=== PATIENT | female | born 1995 | race Asian ===

== ENCOUNTER 2019-04-03 00:37 | Emergency (ER) | payer OTHER ==
[2019-04-03 01:37] LABS: BILIRUBIN,URINE NEGATIVE (NEGATIVE); GLUCOSE, URINE (UA) NEGATIVE (NEGATIVE); KETONES,URINE (UA) NEGATIVE (NEGATIVE); LEUKOCYTE ESTERASE, URINE NEGATIVE (NEGATIVE); NITRITE,URINE NEGATIVE (NEGATIVE); OCCULT BLOOD,URINE NEGATIVE (NEGATIVE); PROTEIN,URINE NEGATIVE (NEGATIVE); UROBILINOGEN,URINE 0.2 (NORMAL) E.U./dL (NORMAL)
[2019-04-03 01:39] LABS: CLARITY,URINE CLEAR (CLEAR); HCG UR QUAL NEGATIVE
--- NOTE | 2019-04-03 02:55 | ED Physician Documentation ---
PD HPI ABD PAIN - Stated complaint Stated Complaint: FEVER - Chief complaint Chief Complaint: Abd Pain - History obtained from History obtained from: Patient - History of Present Illness Timing - onset: How many days ago (2) Timing - duration: Days (2) Timing - details: Gradual onset, Still present Quality: Cramping, Aching, Pain Location: RLQ, Suprapubic Radiation: No: Lower back Improved by: No: Eating Worsened by: No: Eating Associated symptoms: Nausea, Vomiting, Vaginal dc (mild). No: Fever, Diarrhea, Constipation, Dysuria, Hematuria, Vaginal bleeding Similar symptoms before: Has not had sx before Recently seen: Not recently seen Review of Systems Constitutional: reports: Fever (subjective, since yesterday), Chills Nose: denies: Rhinorrhea / runny nose, Congestion Throat: denies: Sore throat Respiratory: denies: Cough GI: reports: Abdominal Pain, Nausea, Vomiting. denies: Constipation, Diarrhea : denies: Dysuria, Frequency PD PAST MEDICAL HISTORY - Past Medical History Past Medical History: Yes Respiratory: Asthma Psych: Depression, Anxiety - Past Surgical History Past Surgical History: Yes - Present Medications Home Medications: Ambulatory Orders Medication Instructions Recorded Confirmed Albuterol Sulfate [Albuterol 04/03/19 Sulfate Hfa] Doxycycline Hyclate 100 mg PO BID #20 capsule 04/03/19 Fluconazole [Diflucan] 150 mg PO ONCE #2 tablet 04/03/19 Ondansetron Odt [Zofran Odt] 4 mg ORAL TID PRN 04/03/19 04/03/19 Ondansetron Odt [Zofran] 4 mg TL Q6H PRN #15 tablet 04/03/19 Pnv No.95/Ferrous Fum/Folic AC 1 each PO 04/03/19 [ Caplet] Sertraline HCl 100 mg PO 04/03/19 - Allergies Allergies/Adverse Reactions: Allergies Allergy/AdvReac Type Severity Reaction Status Date / Time No Known Drug Allergies Allergy Verified 04/03/19 00:45 - Social History Does the pt smoke?: Yes Smoking Status: Current every day smoker Does the pt drink ETOH?: Yes Does the pt have substance abuse?: No - Immunizations Immunizations are current?: Yes - POLST Patient has POLST: No PD ED PE NORMAL - Vitals Vital signs reviewed: Yes - General General: Alert and oriented X 3, Well developed/nourished, Other (appears uncomfortable due to abd pain) - HEENT HEENT: Pharynx benign. No: Moist mucous membranes - Neck Neck: Supple, no meningeal sign, No adenopathy - Cardiac Cardiac: RRR, No murmur - Respiratory Respiratory: Clear bilaterally - Abdomen Abdomen: Normal bowel sounds, Soft, Non distended, No organomegaly, Other (She is tender in the right lower quadrant to the right suprapubic area and also midline in the suprapubic area. There is localized mild guarding. There is no percussion or rebound tenderness.) - Female Female : [employer]ist present, Other (External exam is normal. The vaginal vault shows mild bit of whitish discharge just at the inner labia. However there is a moderate amount of yellow to clear discharge in the vaginal vault and some from the endocervix associated with redness and inflammation of the cervix. No forei gn bodies are seen. Cultures are obtained.) - Rectal Rectal: Deferred - Back Back: No CVA TTP - Derm Derm: Normal color, Warm and dry - Extremities Extremities: No deformity, No tenderness to palpate, Normal ROM s pain, No edema, No calf tenderness / cord - Neuro Neuro: Alert and oriented X 3, No motor deficit, No sensory deficit Results - Vitals Vitals: Vital Signs - 24 hr 04/03/19 04/03/19 04/03/19 00:42 04:06 06:07 Temperature 37 C 36.9 C 36.9 C Heart Rate 94 76 73 Respiratory 18 16 18 Rate Blood Pressure 129/88 H 118/82 H 123/83 H O2 Saturation 99 100 99 04/03/19 06:46 Temperature 36.7 C Heart Rate 72 Respiratory 16 Rate Blood Pressure 121/78 O2 Saturation 99 Oxygen O2 Source Room air - Labs Labs: Laboratory Tests 04/03/19 04/03/19 04/03/19 00:47 03:30 03:30 WBC 7.8 RBC 4.78 Hgb 12.8 Hct 40.8 MCV 85.4 MCH 26.8 L MCHC 31.4 L RDW 12.6 Plt Count 318 MPV 10.2 Neut # (Auto) 4.9 Lymph # (Auto) 2.1 [place] # (Auto) 0.6 Eos # (Auto) 0.2 Baso # (Auto) 0.1 Absolute Nucleated RBC 0.00 Nucleated RBC % 0.0 Sodium 138 Potassium 3.6 Chloride 101 Carbon Dioxide 25 Anion Gap 12.0 BUN 16 Creatinine 0.8 Estimated GFR (MDRD) 89 Glucose 94 Calcium 9.1 Total Bilirubin 0.8 AST 33 ALT 28 Alkaline Phosphatase 41 L Total Protein 7.7 Albumin 4.3 Globulin 3.4 Albumin/Globulin Ratio 1.3 Lipase 26 Urine Color YELLOW Urine Clarity CLEAR Urine pH 7.0 Ur Specific [place] 1.015 Urine Protein NEGATIVE Urine Glucose (UA) NEGATIVE Urine Ketones NEGATIVE Urine Occult Blood NEGATIVE Urine Nitrite NEGATIVE Urine Bilirubin NEGATIVE Urine Urobilinogen 0.2 (NORMAL) Ur Leukocyte Esterase NEGATIVE Ur Microscopic Review NOT INDICATED Urine Culture Comments NOT INDICATED Urine HCG, Qual NEGATIVE - Rads (name of study) abd CT Radiology: Prelim report reviewed (normal appendix), See rad report PD MEDICAL DECISION MAKING - ED course Complexity details: reviewed results (Appendix appeared normal. Her blood tests are reasonable. Urine did not show signs of infection. Subsequently then went to pelvic exam which was consistent with a vaginitis and an Endo cervical discharge. We will treat her as a bacterial vaginitis.), re-evaluated patient (Pain is improved considerably with IV fluids antiemetics and pain medicine.), considered differential (Her feeling of fevers and nausea and vomiting progressing over 1 to 2 days with tenderness and pain in the lower abdomen are suggestive of appendicitis. Consider urinary tract infection as well. She states she has a very mild vaginal discharge so vaginitis would be possible to. We will start with IV fluids and medicines along with blood count urine test and CT scan.), d/w patient Departure - Departure Disposition: 01 Home, Self Care Clinical Impression: Lower abdominal pain, Bacterial vaginitis Nausea and vomiting Qualifiers: Vomiting type: unspecified Vomiting Intractability: non-intractable Qualified Code(s): R11.2 - Nausea with vomiting, unspecified Condition: Stable Record reviewed to determine appropriate education?: Yes Instructions: ED Vaginosis Bacterial, ED Nausea Vomiting Follow-Up: KISHA Burnette [Provider Group] Prescriptions: Doxycycline Hyclate 100 mg PO BID #20 capsule Fluconazole [Diflucan] 150 mg PO ONCE #2 tablet Ondansetron Odt [Zofran] 4 mg TL Q6H PRN #15 tablet PRN Reason: Nausea / Vomiting Comments: Your urine looks normal so no signs of bladder infection. The CT scan showed a normal appendix. There are no other acute abnormality seen on the scan either. On pelvic exam there does not appear to be a bacterial vaginitis. This may be the primary cause of your symptoms with an infection vaginally. Small frequent fluids and rest through the day today. Use ondansetron every 4-6 hours if needed for nausea and vomiting. Tylenol if needed for fevers or pains. Doxycycline antibiotic twice daily for a week for the vaginitis. There might be an element of yeast infection to do so take Diflucan antifungal tablet later today and repeated in 3 days and that should treat that aspect. The cultures from the exam will be resulted in 1 or 2 days and will call you if we need to change treatment. Follow-up with your primary care if not well improved over the next couple of days and return if worsening to the ER. Forms: Activity restrictions Discharge Date/Time: 04/03/19 06:48
[2019-04-03] MEDS ORDERED: ONDANSETRON 4 MG/2 ML VIAL IVP STA ×2 (03:14→06:05)
[2019-04-03] MEDS ORDERED: SODIUM CHLORIDE 0.9% 1,000 ML IV ONE ×2 (03:14)
[2019-04-03] MEDS ORDERED: MORPHINE 2 MG/ML CARPUJECT IVP STA (03:14)
[2019-04-03 03:45] LABS: BASOPHILS # (AUTO) 0.1 10^3/uL (0.0-0.1); BASOPHILS % (AUTO) 0.6 %; EOSINOPHILS # (AUTO) 0.2 10^3/uL (0.0-0.7); EOSINOPHILS % (AUTO) 1.9 %; HGB - HEMOGLOBIN 12.8 g/dL (12.0-16.0); LYMPHOCYTES # (AUTO) 2.1 10^3/uL (1.5-3.5); LYMPHOCYTES % (AUTO) 26.9 %; MEAN CORPUSCULAR HEMOGLOBIN 26.8 pg (27.0-31.0); MEAN CORPUSCULAR HGB CONC 31.4 g/dL (32.0-36.0); MEAN CORPUSCULAR VOLUME 85.4 fL (81.0-99.0); MEAN PLATELET VOLUME 10.2 fL (7.9-10.8); MONOCYTES # (AUTO) 0.6 10^3/uL (0.0-1.0); MONOCYTES % (AUTO) 7.3 %; NEUTROPHILS # (AUTO) 4.9 10^3/uL (1.5-6.6); NEUTROPHILS % (AUTO) 63.2 %; PLT - PLATELET COUNT 318 10^3/uL (130-450); RED BLOOD COUNT 4.78 10^6/uL (4.20-5.40); RED CELL DISTRIBUTION WIDTH 12.6 % (12.0-15.0); WHITE BLOOD COUNT 7.8 x10^3/uL (4.8-10.8)
[2019-04-03 03:56] LABS: ALBUMIN 4.3 g/dL (3.2-5.5); ALBUMIN/GLOBULIN RATIO 1.3 (1.0-2.2); BILIRUBIN,TOTAL 0.8 mg/dL (0.2-1.0); CALCIUM 9.1 mg/dL (8.5-10.3); CREATININE 0.8 mg/dL (0.4-1.0); TOTAL PROTEIN 7.7 g/dL (6.7-8.2)
[2019-04-03] MEDS ORDERED: IOVERSOL 320 100 ML VIAL IVP ONE ×2 (04:31→05:03)
--- NOTE | 2019-04-03 05:17 | CT Report ---
Reason: 2 days umbilicaul/RLQ pain Procedure Date: 04/03/2019 Accession Number: [id number] / [id number] Procedure: CT - Abdomen/Pelvis W CPT Code: FULL RESULT: EXAM: CT ABDOMEN AND PELVIS EXAM DATE: 04/03/2019 05:01 AM CLINICAL HISTORY: Two days umbilical/right lower quadrant pain. COMPARISONS: None. TECHNIQUE: Routine helical CT imaging was performed through the abdomen and pelvis. IV contrast: Yes. Enteric contrast: No. Reconstructions: Coronal and sagittal. In accordance with CT protocol optimization, one or more of the following dose reduction techniques were utilized for this exam: automated exposure control, adjustment of mA and/or KV based on patient size, or use of iterative reconstructive technique. FINDINGS: Lung Bases: Unremarkable. Liver: Unremarkable. No suspicious masses. Gallbladder/Bile Ducts: Unremarkable. Spleen: Unremarkable. Pancreas: Unremarkable. Adrenal Glands: Unremarkable. Kidneys: Unremarkable. No suspicious masses or hydronephrosis. Peritoneal Cavity/Bowel: No bowel obstruction or inflammatory process seen. No free air or significant free fluid. No masses or adenopathy. The appendix is normal. No excessive stool burden. Pelvic Organs: Bladder, uterus, and adnexa appear unremarkable with note of a benign-appearing partially exophytic 3 cm right ovarian cyst. By ACR criteria, this does not require follow-up. Vasculature: No aneurysms or other significant abnormality. Bones: No significant abnormality. Other: None. IMPRESSION: 1. No acute inflammatory or obstructive process seen in the abdomen or pelvis. 2. Approximately 3 cm exophytic right ovarian cyst/dominant follicle. Potential source of pain but without suspicious features. RADIA
[2019-04-03] MEDS ORDERED: cefTRIAXone 1 GM VIAL IVP STA (06:05)
[2019-04-03] MEDS ORDERED: DOXYCYCLINE 100 MG TABLET PO STA (06:05)
[2019-04-03] MEDS ORDERED: KETOROLAC 15 MG/ML VIAL IVP STA (06:06)
[2019-04-03 06:48] VITALS: BP 121/78
[2019-04-03 14:55] LABS: CANDIDA GROUP DNA NEGATIVE (NEGATIVE); CANDIDA KRUSEI DNA NEGATIVE (NEGATIVE); TRICHOMONAS VAGINALIS DNA NEGATIVE (NEGATIVE)
[2019-04-03 20:13] LABS: TRICHOMONAS VAGINALIS DNA NEGATIVE (NEGATIVE)
== END 2019-04-03 06:48 | disposition home or self-care (01) ==
LOC: ED 00:37
DX: N76.0 Acute vaginitis (principal); B96.89 Other specified bacterial agents as the cause of diseases classified elsewhere; R11.2 Nausea with vomiting, unspecified; F17.200 Nicotine dependence, unspecified, uncomplicated
CPT/HCPCS: 36415; 74177; 80053; 81003; 81025; 83690; 85025; 87481; 87491; 87591; 87661; 87801; 96374; 96375; 99284; 99285; A9270; Q9967; 81001; 87086

== ENCOUNTER 2019-12-05 04:37 | Emergency (ER) | payer OTHER ==
--- NOTE | 2019-12-05 04:42 | ED Physician Documentation ---
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 Reports of a history of recurrent UTIs. Denies any other complaints such as fevers or flank pain.) Review of Systems Constitutional: reports: Reviewed and negative Eyes: reports: Reviewed and negative Ears: reports: Reviewed and negative Nose: reports: Reviewed and negative Throat: reports: Reviewed and negative Cardiac: reports: Reviewed and negative Respiratory: reports: Reviewed and negative GI: reports: Reviewed and negative : reports: Dysuria, Frequency, Reviewed and negative Skin: reports: Reviewed and negative Musculoskeletal: reports: Reviewed and negative Neurologic: reports: Reviewed and negative Psychiatric: reports: Reviewed and negative Endocrine: reports: Reviewed and negative Immunocompromised: reports: Reviewed and negative PD PAST MEDICAL HISTORY - Past Medical History Respiratory: Asthma Psych: Depression, Anxiety - Past Surgical History Past Surgical History: Yes - Present Medications Home Medications: Ambulatory Orders Medication Instructions Recorded Confirmed Pnv No.95/Ferrous Fum/Folic AC 1 each PO DAILY 04/03/19 12/05/19 [ Caplet] Cephalexin [Keflex] 500 mg PO BID 7 Days #14 capsule 12/05/19 Phenazopyridine [Pyridium] 100 mg PO TID #5 tablet 12/05/19 Venlafaxine ER [Effexor ER] 1 tab DAILY 12/05/19 12/05/19 - Allergies Allergies/Adverse Reactions: Allergies Allergy/AdvReac Type Severity Reaction Status Date / Time No Known Drug Allergies Allergy Verified 12/05/19 04:54 - Social History Does the pt smoke?: Yes Smoking Status: Current every day smoker Does the pt drink ETOH?: Yes Does the pt have substance abuse?: No - Immunizations Immunizations are current?: Yes - POLST Patient has POLST: No PD ED PE NORMAL - Vitals Vital signs reviewed: Yes - General General: Alert and oriented X 3, No acute distress, Well developed/nourished - HEENT HEENT: PERRL - Neck Neck: Supple, no meningeal sign - Cardiac Cardiac: RRR, No murmur - Respiratory Respiratory: Clear bilaterally - Abdomen Abdomen: Normal bowel sounds, Soft, Non tender, Non distended - Female Female : Deferred - Rectal Rectal: Deferred - Back Back: No CVA TTP, No spinal TTP - Derm Derm: Normal color, Warm and dry, No rash - Extremities Extremities: No deformity - Neuro Neuro: Alert and oriented X 3 - Psych Psych: Normal mood, Normal affect Results - Vitals Vitals: Vital Signs - 24 hr 12/05/19 04:51 Temperature 36.7 C Heart Rate 77 Respiratory 16 Rate Blood Pressure 129/86 H O2 Saturation 100 Oxygen O2 Source Room air - Labs Labs: Laboratory Tests 12/05/19 04:50 Urine Color YELLOW Urine Clarity HAZY Urine pH 6.0 Ur Specific [place] 1.025 Urine Protein 100 H Urine Glucose (UA) NEGATIVE Urine Ketones NEGATIVE Urine Occult Blood LARGE H Urine Nitrite NEGATIVE Urine Bilirubin NEGATIVE Urine Urobilinogen 0.2 (NORMAL) Ur Leukocyte Esterase SMALL H Urine RBC 11-25 H Urine WBC >25 H Ur Squamous Epith Cells FEW Squamous Urine Bacteria Few Ur Microscopic Review INDICATED Urine Culture Comments INDICATED Urine HCG, Qual NEGATIVE PD MEDICAL DECISION MAKING - ED course Complexity details: reviewed results, re-evaluated patient, considered differential (Acute cystitis), d/w patient Departure - Departure Disposition: Home, Self Care Clinical Impression: Urinary tract infection Qualifiers: Urinary tract infection type: site unspecified Hematuria presence: without he maturia Qualified Code(s): N39.0 - Urinary tract infection, site not specified Condition: Stable Instructions: ED UTI Cystitis Female Follow-Up: your, doctor [Other] - 12/05/19 Prescriptions: Cephalexin [Keflex] 500 mg PO BID 7 Days #14 capsule Phenazopyridine [Pyridium] 100 mg PO TID #5 tablet Comments: Follow-up with medical at [facility] would be today.Take prescription medication as directed.
[2019-12-05 04:59] LABS: BILIRUBIN,URINE NEGATIVE (NEGATIVE); GLUCOSE, URINE (UA) NEGATIVE (NEGATIVE); KETONES,URINE (UA) NEGATIVE (NEGATIVE); LEUKOCYTE ESTERASE, URINE SMALL (NEGATIVE); NITRITE,URINE NEGATIVE (NEGATIVE); OCCULT BLOOD,URINE LARGE (NEGATIVE); PROTEIN,URINE 100 mg/dL (NEGATIVE); UROBILINOGEN,URINE 0.2 (NORMAL) E.U./dL (NORMAL)
[2019-12-05 05:01] LABS: CLARITY,URINE HAZY (CLEAR); HCG UR QUAL NEGATIVE
[2019-12-05] MEDS ORDERED: cephALEXin 250 MG CAPSULE PO STA (05:02)
[2019-12-05] MEDS ORDERED: PHENAZOPYRIDINE 100 MG TABLET PO STA (05:02)
[2019-12-05 05:14] LABS: BACTERIA,URINE Few /HPF (None Seen); SQUAMOUS EPITHELIAL CELL,UR FEW Squamous (<= Few)
[2019-12-05 05:34] VITALS: BP 124/78
== END 2019-12-05 05:25 | disposition home or self-care (01) ==
LOC: ED 04:37
DX: N39.0 Urinary tract infection, site not specified (principal); F17.200 Nicotine dependence, unspecified, uncomplicated
CPT/HCPCS: 81001; 81025; 87086; 99283; A9270; 81003